=== PATIENT | male | born 1960 | race Two or more races ===

== ENCOUNTER → 2024-08-13 | Outpatient (CLI) | payer BC, SELFPAY ==
[2024-08-13 08:42] LABS: Alanine Aminotransferase 41 U/L (10-49); Albumin, Serum 4.3 gm/dL (3.4-4.8); Alkaline Phosphatase 81 U/L (46-116); Anion Gap 10 (7-16); Aspartate Amino Transferase 25 U/L (0-34); BUN/Creatinine Ratio 13 Ratio (12-20); Bilirubin,Direct 0.3 mg/dL (0.0-0.3); Bilirubin,Total 0.9 mg/dL (0.3-1.2); Blood Urea Nitrogen 14 mg/dL (9-23); Calcium 9.7 mg/dL (8.3-10.6); Carbon Dioxide 27.4 mMol/L (20.0-31.0); Cardiac Risk Estimate 5.3 RATIO (4.0-6.7); Chloride 99 mMol/L (98-107); Cholesterol 175 mg/dL (132-200); Creatinine (Component) 1.1 mg/dL (0.6-1.3); HDL Cholesterol 33 mg/dL (40-60); LDL Cholesterol,Calculated 71 mg/dL (0-130); Osmolality,Calculated 289 (275-295); Potassium 4.3 mMol/L (3.4-5.1); Sodium 136 mMol/L (136-145); Total Protein 7.6 gm/dL (5.7-8.2); Triglycerides 354 mg/dL (30-150); eGFR > 60 See Note
[2024-08-13 08:43] LABS: Basophils # (Auto) 0.1 Thou/mm3 (0.0-0.2); Basophils % (Auto) 1 % (0-2.5); Eosinophils # (Auto) 0.1 Thou/mm3 (0.0-0.5); Eosinophils % (Auto) 1 % (0-10); Hematocrit 45.6 % (41.0-53.0); Hemoglobin 16.6 g/dL (13.5-16.0); Immature Granulocytes % (Auto) 1 % (0-0); Immature Granulocytes Auto 0.03 Thou/mm3 (0.00-0.00); Lymphocytes % (Auto) 46 % (10-50); Mean Corpuscular HGB Conc 36.4 g/dl (31.0-37.0); Mean Corpuscular Hemoglobin 31.4 pg (25.0-35.0); Mean Corpuscular Volume 86 fL (80-100); Monocytes # (Auto) 0.6 Thou/mm3 (0.0-0.8); Monocytes % (Auto) 9 % (0-12); Neutrophils # (Auto) 2.8 Thou/mm3 (1.8-7.7); Neutrophils % (Auto) 42 % (37-80); Nucleated Red Blood Cell % 0 /100 WBC (0); Platelet Count 157 Thou/mm3 (140-440); RDW Standard Deviation 38.8 fL (35.1-43.9); Red Blood Count 5.28 Miln/mm3 (4.50-5.90); White Blood Count 6.5 Thou/mm3 (3.8-10.6)
[2024-08-13 08:48] LABS: Glucose 409 mg/dL (74-106)
== END | disposition home or self-care (01) ==
LOC: COPL 06:52
PROVIDERS: PCP Family Medicine; Referring Provider Family Medicine; Visit Provider Family Medicine
DX: E78.5 Hyperlipidemia, unspecified (principal); R05.1 Acute cough; M25.552 Pain in left hip
CPT/HCPCS: 36415; 80048; 80061; 80076; 85025

== ENCOUNTER → 2024-08-20 | Outpatient (CLI) | payer BC, SELFPAY ==
[2024-08-20 10:48] LABS: Glucose 297 mg/dL (74-106)
[2024-08-20 10:49] LABS: Glucose Estimated Average 321 mg/dL (80-131); Hemoglobin A1C 12.8 % Hgb (4.8-6.0)
== END | disposition home or self-care (01) ==
LOC: COPL 09:01
PROVIDERS: PCP Family Medicine; Referring Provider Family Medicine; Visit Provider Family Medicine
DX: R73.9 Hyperglycemia, unspecified (principal)
CPT/HCPCS: 36415; 82947; 83036

== ENCOUNTER → 2025-04-26 | Outpatient (CLI) | payer MEDICARE, SELFPAY ==
[2025-04-26 11:06] LABS: Glucose Estimated Average 148 mg/dL (80-131); Hemoglobin A1C 6.8 % Hgb (4.8-6.0)
[2025-04-26 11:12] LABS: Anion Gap 12 (7-16); BUN/Creatinine Ratio 14 Ratio (12-20); Blood Urea Nitrogen 15 mg/dL (9-23); Calcium 9.7 mg/dL (8.3-10.6); Carbon Dioxide 25.3 mMol/L (20.0-31.0); Chloride 104 mMol/L (98-107); Creatinine (Component) 1.1 mg/dL (0.6-1.3); Glucose 141 mg/dL (74-106); Osmolality,Calculated 284 (275-295); Potassium 4.0 mMol/L (3.4-5.1); Sodium 141 mMol/L (136-145); Triglycerides 134 mg/dL (30-150); eGFR > 60 See Note
[2025-04-26 12:23] LABS: Creatinine MALB Rnd Ur 172 mg/dL (30-125); Microalbumin Creat Ratio 5 mg/gCrea (<30); Microalbumin, Random Urine 8 mg/L (0-300)
== END | disposition home or self-care (01) ==
PROVIDERS: PCP Family Medicine; Referring Provider Family Medicine; Visit Provider Family Medicine
DX: E11.65 Type 2 diabetes mellitus with hyperglycemia (principal); E78.1 Pure hyperglyceridemia
CPT/HCPCS: 36415; 80048; 82043; 82570; 83036; 84478